=== PATIENT | male | born 1955 | race Hispanic/Latino ===

== ENCOUNTER 2019-09-03 13:34 | Emergency (ER) | payer BC ==
[2019-09-03] MEDS ORDERED: Fluorescein Opthalmic Strip ONE (13:43)
[2019-09-03] MEDS ORDERED: Sodium Chloride 0.9% 1,000 ML ONE (13:58)
== END 2019-09-03 14:36 | disposition home or self-care (01) ==
LOC: NAV ERS 13:34
DX: T15.92XA Foreign body on external eye, part unspecified, left eye, initial encounter (principal); E11.9 Type 2 diabetes mellitus without complications; E78.5 Hyperlipidemia, unspecified; I10 Essential (primary) hypertension
CPT/HCPCS: 99283; J7050